=== PATIENT | female | born 1950 | race Caucasian/White ===

== ENCOUNTER 2016-07-10 20:32 | Inpatient (IN) | payer OTHER ==
[~2016-07-10] VITALS: Ht 147.3 cm; Wt 62.1 kg
[2016-07-10] MEDS ORDERED: SODIUM CHLORIDE 0.9% 1,000 ML IV ONE (21:46)
[2016-07-10] MEDS ORDERED: SODIUM CHLORIDE FLUSH 10ML SYR IVF ONE (22:00)
[2016-07-10] MEDS ORDERED: MORPHINE SULFATE 4 MG/ML, 1ML IVPush PRN (22:00)
[2016-07-10] MEDS ORDERED: ONDANSETRON 2MG/ML, 2ML IVPush ONE (22:00)
[2016-07-10 22:08] LABS: HEMOGLOBIN 15.1 g/dL (11.7-16.4)
[2016-07-10 22:18] LABS: BLOOD UREA NITROGEN 19 mg/dL (7-18)
[2016-07-10] MEDS ORDERED: PROMETHAZINE 25 MG/ML, 1ML IM PRN (23:30)
[2016-07-10] MEDS ORDERED: SENNA/DOCUSATE TABLET PO PRN (23:30)
[2016-07-10] MEDS ORDERED: ACETAMINOPHEN 325 MG TABLET PO PRN (23:30)
[2016-07-10] MEDS ORDERED: HYDROcodone/APAP 5/325 TABLET PO PRN (23:30)
[2016-07-10] MEDS ORDERED: MAGNESIUM HYDROXIDE 8%, 30ML UDC PO PRN (23:30)
[2016-07-10] MEDS ORDERED: ONDANSETRON 2MG/ML, 2ML IV PRN (23:30)
[2016-07-10] MEDS ORDERED: DIPHENHYDRAMINE 25 MG CAPSULE PO PRN (23:30)
[2016-07-10] MEDS ORDERED: ALUMINUM/MAG/SIMETHICONE 30 ML UDC PO PRN (23:30)
[2016-07-10] MEDS ORDERED: BISACODYL 10 MG SUPP PR PRN (23:30)
[2016-07-11] MEDS: HYDROmorphone 1 MG/ML, 1ML IV PRN ×4 (00:02→10:42)
[2016-07-11 00:14] VITALS: BP 203/88
[2016-07-11] MEDS: D5%-0.45NACL+KCL 20MEQ 1,000 ML IV SCH ×2 (00:40→11:30)
[2016-07-11 01:02] VITALS: BP 163/82
[2016-07-11] MEDS ORDERED: MIDAZOLAM 1 MG/ML, 2ML ONE (07:12)
[2016-07-11] MEDS ORDERED: FENTANYL PF 250 MCG/5ML ONE (07:12)
[2016-07-11] MEDS: MULTIVITAMINS/MINERALS TABLET PO SCH (07:27)
[2016-07-11] MEDS: DOCUSATE 100 MG CAPSULE PO SCH ×2 (07:27→20:45)
[2016-07-11] MEDS ORDERED: SUCCINYLCHOLINE 20 MG/ML, 10ML ONE (07:28)
[2016-07-11] MEDS ORDERED: DEXAMETHASONE 4 MG/ML, 1ML ONE (07:28)
[2016-07-11] MEDS ORDERED: PROPOFOL 10 MG/ML, 20ML ONE (07:28)
[2016-07-11] MEDS ORDERED: CEFAZOLIN 1,000 MG ONE (07:28)
[2016-07-11] MEDS ORDERED: ONDANSETRON 2MG/ML, 2ML ONE (07:28)
[2016-07-11] MEDS ORDERED: EPHEDRINE 50 MG/ML, 1ML ONE (07:28)
[2016-07-11] MEDS ORDERED: PROMETHAZINE 25 MG/ML, 1ML IV PRN (08:30)
[2016-07-11] MEDS ORDERED: HYDROcodone/APAP 7.5-325MG/15ML UDC PO PRN (08:30)
[2016-07-11] MEDS ORDERED: MIDAZOLAM 1 MG/ML, 2ML IV PRN (08:30)
[2016-07-11] MEDS ORDERED: ONDANSETRON 2MG/ML, 2ML IVPush PRN (08:30)
[2016-07-11] MEDS ORDERED: HYDROmorphone 1 MG/ML, 1ML IV PRN (08:30)
[2016-07-11] MEDS ORDERED: OXYcodone 5 MG/5 ML ORAL.SOL UDC PO PRN (08:30)
[2016-07-11] MEDS ORDERED: MEPERIDINE/PF 25MG/0.5ML IVPush PRN (08:30)
[2016-07-11] MEDS ORDERED: ACETAMINOPHEN 325 MG TABLET PO PRN (08:30)
[2016-07-11] MEDS ORDERED: FENTANYL PF 100 MCG/2ML ONE (08:57)
[2016-07-11] MEDS ORDERED: OXYcodone 5 MG/5 ML ORAL.SOL UDC ONE (08:57)
[2016-07-11] MEDS: FENTANYL PF 100 MCG/2ML IV PRN ×2 (09:05→09:35)
[2016-07-11] MEDS ORDERED: hydrALAzine 20 MG/ML, 1ML ONE (09:19)
[2016-07-11] MEDS ORDERED: hydrALAzine 20 MG/ML, 1ML IV ONE (09:30)
[2016-07-11] MEDS ORDERED: LABETALOL 5MG/ML, 20ML IVPush PRN (09:30)
[2016-07-11 10:32] VITALS: BP 156/78
[2016-07-11] MEDS: DIAZEPAM 5 MG TABLET PO PRN ×3 (10:43→20:45)
[2016-07-11] MEDS: SODIUM CHLORIDE 0.9% 1,000 ML IV SCH ×2 (11:30→19:26)
[2016-07-11] MEDS: OXYcodone/APAP 5/325MG TABLET PO PRN ×3 (12:54→22:10)
[2016-07-11 13:41] VITALS: BP 153/71
[2016-07-11] MEDS: CEFAZOLIN PMX 1GM/50ML 50 ML IVPB SCH ×2 (14:07→22:11)
[2016-07-11 20:31] VITALS: BP 120/63
[2016-07-11] MEDS: ASPIRIN 325 MG TABLET EC PO SCH (20:45)
[2016-07-12 00:03] VITALS: BP 133/67
[2016-07-12] MEDS: OXYcodone/APAP 5/325MG TABLET PO PRN ×4 (01:56→21:17)
[2016-07-12 03:56] VITALS: BP 109/68
[2016-07-12] MEDS: SODIUM CHLORIDE 0.9% 1,000 ML IV SCH ×3 (05:00→21:02)
[2016-07-12 08:12] VITALS: BP 105/65
[2016-07-12] MEDS: DOCUSATE 100 MG CAPSULE PO SCH ×2 (10:09→21:18)
[2016-07-12] MEDS: DIAZEPAM 5 MG TABLET PO PRN (10:09)
[2016-07-12] MEDS: ASPIRIN 325 MG TABLET EC PO SCH ×2 (10:09→21:17)
[2016-07-12] MEDS: MULTIVITAMINS/MINERALS TABLET PO SCH (10:09)
[2016-07-12] MEDS ORDERED: DIAZ5TAB PO (13:10)
[2016-07-12] MEDS ORDERED: OXYC5TAB2 PO (13:10)
[2016-07-12] MEDS ORDERED: ASPI-13 PO (13:12)
[2016-07-12] MEDS ORDERED: ONDA4TAB7 PO (13:12)
[2016-07-12] MEDS ORDERED: DOCU-30 PO (13:13)
[2016-07-12 14:25] VITALS: BP 156/73
[2016-07-12 20:51] VITALS: BP 122/66
[2016-07-13 02:01] VITALS: BP 114/73
[2016-07-13] MEDS: SODIUM CHLORIDE 0.9% 1,000 ML IV SCH ×3 (05:00→20:48)
[2016-07-13 06:57] VITALS: BP 125/68
[2016-07-13] MEDS: ASPIRIN 325 MG TABLET EC PO SCH ×2 (09:02→20:48)
[2016-07-13] MEDS: DOCUSATE 100 MG CAPSULE PO SCH ×2 (09:02→20:48)
[2016-07-13] MEDS: MULTIVITAMINS/MINERALS TABLET PO SCH (09:02)
[2016-07-13] MEDS: OXYcodone/APAP 5/325MG TABLET PO PRN (10:09)
[2016-07-13 14:15] VITALS: BP 112/64
[2016-07-13 19:43] VITALS: BP 150/78
[2016-07-14 01:08] VITALS: BP 137/77
[2016-07-14] MEDS: SODIUM CHLORIDE 0.9% 1,000 ML IV SCH ×2 (04:40→13:00)
[2016-07-14 07:41] VITALS: BP 170/76
[2016-07-14] MEDS: MULTIVITAMINS/MINERALS TABLET PO SCH (10:09)
[2016-07-14] MEDS: ASPIRIN 325 MG TABLET EC PO SCH (10:09)
[2016-07-14] MEDS: DOCUSATE 100 MG CAPSULE PO SCH (10:10)
[2016-07-14 13:18] VITALS: BP 152/78
== END 2016-07-14 13:52 | disposition home health service (06) | DRG 563 ==
LOC: ED 23:05 → EDIP 23:15 → 4NOR 23:34 → DCLOUNGE 07-14 13:31
PROVIDERS: ADMIT Orthopaedic Surgery Adult Reconstructive Orthopaedic Surgery; ATTEND Orthopaedic Surgery Adult Reconstructive Orthopaedic Surgery
PROC: 0QSGXZZ Reposition Right Tibia, External Approach (ICD-10-PCS; principal; 2016-07-11 07:30)
DX: S82.141A Displaced bicondylar fracture of right tibia, initial encounter for closed fracture (principal); W01.0XXA Fall on same level from slipping, tripping and stumbling without subsequent striking against object, initial encounter; Y93.K1 Activity, walking an animal; Y92.89 Other specified places as the place of occurrence of the external cause; Y99.8 Other external cause status
CPT/HCPCS: 36415; 71010; 76001; 80048; 82040; 85025; 85610; 85730; 93005; 99285; J0690; J1100; J1170; J2250; J2405; J2704; J3010; J0330; J0360; J3480; J7030

== ENCOUNTER → 2016-07-20 | Outpatient (CLI) | payer OTHER ==
[~2016-07-20] MED LIST: ASPI-13 PO; DIAZ5TAB PO; DOCU-30 PO; ONDA4TAB7 PO; OXYC5TAB2 PO
== END | disposition home or self-care (01) ==
LOC: CFH 12:05
PROVIDERS: ATTEND Orthopaedic Surgery
DX: S82.191A Other fracture of upper end of right tibia, initial encounter for closed fracture (principal); S82.491A Other fracture of shaft of right fibula, initial encounter for closed fracture; M19.071 Primary osteoarthritis, right ankle and foot; X58.XXXA Exposure to other specified factors, initial encounter; Y93.89 Activity, other specified; Y92.89 Other specified places as the place of occurrence of the external cause; Y99.8 Other external cause status

== ENCOUNTER 2016-07-22 11:42 | Inpatient (IN) | payer OTHER ==
[~2016-07-22] VITALS: Ht 147.3 cm; Wt 63.1 kg
[2016-07-22 12:16] VITALS: BP 208/84
[2016-07-22] MEDS: LACTATED RINGERS 1,000 ML IV SCH ×2 (12:52→18:50)
[2016-07-22] MEDS ORDERED: FENTANYL PF 250 MCG/5ML ONE (13:03)
[2016-07-22] MEDS ORDERED: MIDAZOLAM 1 MG/ML, 2ML ONE (13:04)
[2016-07-22] MEDS ORDERED: ONDANSETRON 2MG/ML, 2ML ONE (13:18)
[2016-07-22] MEDS ORDERED: PROPOFOL 10 MG/ML, 20ML ONE (13:18)
[2016-07-22] MEDS ORDERED: CEFAZOLIN 1,000 MG ONE (13:18)
[2016-07-22] MEDS ORDERED: DEXAMETHASONE 4 MG/ML, 1ML ONE (13:18)
[2016-07-22] MEDS ORDERED: LABETALOL 20 MG/4 ML ONE (13:18)
[2016-07-22] MEDS ORDERED: SUCCINYLCHOLINE 20 MG/ML, 10ML ONE (13:18)
[2016-07-22] MEDS ORDERED: ROCURONIUM 10 MG/ML ONE (13:18)
[2016-07-22] MEDS ORDERED: LABETALOL 5MG/ML, 20ML IV PRN (14:00)
[2016-07-22] MEDS ORDERED: FENTANYL PF 100 MCG/2ML IV PRN (14:00)
[2016-07-22] MEDS ORDERED: ACETAMINOPHEN 325 MG TABLET PO PRN ×2 (14:00→15:00)
[2016-07-22] MEDS ORDERED: METOCLOPRAMIDE 5 MG/ML, 2ML IV PRN (14:00)
[2016-07-22] MEDS ORDERED: ONDANSETRON 2MG/ML, 2ML IVPush PRN ×2 (14:00→15:00)
[2016-07-22] MEDS ORDERED: OXYcodone 5 MG/5 ML ORAL.SOL UDC PO PRN ×2 (14:00→17:00)
[2016-07-22] MEDS ORDERED: BUPIVACAINE/PF 0.5% ONE (14:35)
[2016-07-22] MEDS ORDERED: NEOSPORIN OINT, 15GM ONE (14:44)
[2016-07-22] MEDS ORDERED: SENNA/DOCUSATE TABLET PO PRN (15:00)
[2016-07-22] MEDS ORDERED: BISACODYL 10 MG SUPP PR PRN (15:00)
[2016-07-22] MEDS ORDERED: HYDROmorphone 1 MG/ML, 1ML IVPush PRN (15:00)
[2016-07-22] MEDS ORDERED: MAGNESIUM HYDROXIDE 8%, 30ML UDC PO PRN (15:00)
[2016-07-22] MEDS ORDERED: hydrALAzine 20 MG/ML, 1ML ONE (15:14)
[2016-07-22] MEDS: hydrALAzine 20 MG/ML, 1ML IV PRN ×2 (15:16→15:37)
[2016-07-22] MEDS ORDERED: HYDROmorphone 2 MG/ML, 1ML ONE (15:26)
[2016-07-22] MEDS ORDERED: OXYcodone 5 MG/5 ML ORAL.SOL UDC ONE (15:27)
[2016-07-22] MEDS: HYDROmorphone 1 MG/ML, 1ML IV PRN ×4 (15:29→16:10)
[2016-07-22] MEDS ORDERED: LABETALOL 5MG/ML, 20ML IVPush PRN (17:30)
[2016-07-22] MEDS ORDERED: LABETALOL 5MG/ML 40ML VIAL ONE (17:41)
[2016-07-22] MEDS: LABETALOL 20 MG/4 ML IVPush PRN (18:05)
[2016-07-22] MEDS: POTASSIUM CHLORIDE 20 MEQ in D5%-0.45% NACL 1,000 ML IV SCH (18:51)
[2016-07-22 18:55] VITALS: BP 153/75
[2016-07-22] MEDS: OXYcodone/APAP 5/325MG TABLET PO PRN ×2 (20:29→23:58)
[2016-07-22] MEDS: DOCUSATE 100 MG CAPSULE PO SCH (20:29)
[2016-07-22] MEDS: CEFAZOLIN PMX 1GM/50ML 50 ML IVPB SCH (20:39)
[2016-07-23] VITALS (7 sets, daily range): BP systolic 155–195; BP diastolic 71–80
[2016-07-23] MEDS: POTASSIUM CHLORIDE 20 MEQ in D5%-0.45% NACL 1,000 ML IV SCH ×2 (04:29→16:50)
[2016-07-23] MEDS: CEFAZOLIN PMX 1GM/50ML 50 ML IVPB SCH (05:11)
[2016-07-23] MEDS: ENOXAPARIN 30 MG/0.3 ML SQ SCH (06:16)
[2016-07-23] MEDS: OXYcodone/APAP 5/325MG TABLET PO PRN ×3 (08:32→22:00)
[2016-07-23] MEDS: DOCUSATE 100 MG CAPSULE PO SCH ×2 (08:37→21:59)
[2016-07-23] MEDS: MULTIVITAMINS/MINERALS TABLET PO SCH (08:37)
[2016-07-23] MEDS: LABETALOL 20 MG/4 ML IVPush PRN (22:00)
[2016-07-24] MEDS: OXYcodone/APAP 5/325MG TABLET PO PRN ×3 (02:11→13:33)
[2016-07-24 04:02] VITALS: BP 184/71
[2016-07-24] MEDS: LABETALOL 20 MG/4 ML IVPush PRN (04:08)
[2016-07-24] MEDS: POTASSIUM CHLORIDE 20 MEQ in D5%-0.45% NACL 1,000 ML IV SCH ×2 (04:13→12:12)
[2016-07-24] MEDS: ENOXAPARIN 30 MG/0.3 ML SQ SCH (05:33)
[2016-07-24 05:38] VITALS: BP 164/64
[2016-07-24 06:44] VITALS: BP 211/78
[2016-07-24] MEDS: DOCUSATE 100 MG CAPSULE PO SCH (07:15)
[2016-07-24] MEDS: MULTIVITAMINS/MINERALS TABLET PO SCH (07:15)
[2016-07-24] MEDS ORDERED: MULT-90 PO (14:32)
[2016-07-24] MEDS ORDERED: ASPI-515 PO (14:35)
[2016-07-24] MEDS ORDERED: CALC1TAB PO (14:36)
[2016-07-25] MEDS ORDERED: ENOXAPARIN 40 MG/0.4 ML SQ SCH (06:00)
== END 2016-07-24 14:53 | disposition home or self-care (01) | DRG 494 ==
LOC: OUT 11:42 → ORIP 14:57 → 4NOR 16:44 → DCLOUNGE 07-24 14:20
PROVIDERS: ADMIT Orthopaedic Surgery; ATTEND Orthopaedic Surgery
PROC: 0QPGX5Z Removal of External Fixation Device from Right Tibia, External Approach (ICD-10-PCS; 2016-07-22)
PROC: 0QSG04Z Reposition Right Tibia with Internal Fixation Device, Open Approach (ICD-10-PCS; principal; 2016-07-22 13:30)
DX: S82.141A Displaced bicondylar fracture of right tibia, initial encounter for closed fracture (principal); X58.XXXA Exposure to other specified factors, initial encounter; Y93.89 Activity, other specified; Y92.89 Other specified places as the place of occurrence of the external cause; Y99.8 Other external cause status; S83.281A Other tear of lateral meniscus, current injury, right knee, initial encounter; M85.80 Other specified disorders of bone density and structure, unspecified site
CPT/HCPCS: 76001; J0690; J1100; J1170; J1650; J2250; J2405; J2704; J3010; J3480; J3490; J0330; J0360; J7120

== ENCOUNTER 2016-07-29 18:00 | Emergency (ER) | payer OTHER ==
[~2016-07-29] VITALS: Ht 147.3 cm; Wt 55.2 kg
[~2016-07-29 18:00] MED LIST changes: +ASPI-515 PO; +CALC1TAB PO; +MULT-90 PO
[2016-07-29 19:40] VITALS: BP 193/90
== END 2016-07-29 19:51 | disposition home or self-care (01) ==
LOC: ED 19:49
DX: G89.18 Other acute postprocedural pain (principal); M79.661 Pain in right lower leg